=== PATIENT | male | born 1980 | race Caucasian/White ===

== ENCOUNTER 2022-03-23 17:05 | Emergency (ER) | payer BC, OTHER ==
[~2022-03-23] VITALS: Ht 175.3 cm; Wt 95.3 kg
[2022-03-23] MEDS ORDERED: FLUORESCEIN SOD(OPTH) 1 MG STRP OP ONE (19:00)
[2022-03-23] MEDS ORDERED: TETRACAINE HCL 0.5% OPTH SOLN 4 ML BTL OP ONE (19:00)
[2022-03-23] MEDS ORDERED: VIGAMOX3 ML OS (19:33)
[2022-03-23] MEDS ORDERED: IBUPROFEN 600 MG TAB PO STA (19:33)
[2022-03-23] MEDS ORDERED: IBUPROFEN600 MG PO (19:33)
[2022-03-23] MEDS ORDERED: CYCLOPENTOLATE HCL 1% OPTH SOLN 2ML BTL OP ONE (19:45)
[2022-03-23] MEDS ORDERED: MOXIFLOXACIN HCL(OPTH) 3 ML BTL OP SCH (21:00)
== END 2022-03-23 20:47 | disposition home or self-care (01) ==
LOC: ER 17:28
DX: H57.12 Ocular pain, left eye (principal); S05.02XA Injury of conjunctiva and corneal abrasion without foreign body, left eye, initial encounter; X58.XXXA Exposure to other specified factors, initial encounter; Y92.89 Other specified places as the place of occurrence of the external cause
CPT/HCPCS: 99283